=== PATIENT | male | born 1990 ===

== ENCOUNTER 2018-06-26 18:04 | Emergency (ER) | payer MEDICAID, OTHER ==
[2018-06-26 18:18] VITALS: BP 144/87; PULSE 80; RESP 19; TEMP 98.4; O2SAT 99
--- NOTE | 2018-06-26 18:31 | ED PDOC ---
HPI: SOB/CHF/COPD Time Seen by Provider: 06/26/18 18:24 Chief Complaint (Nursing): Shortness Of Breath Chief Complaint (Provider): Shortness of breath History Per: Patient History/Exam Limitations: no limitations Onset/Duration Of Symptoms: Days (months) Additional Complaint(s): Pt. states he has shortness of breath and has asthma. Refuses to give more information. Denies chest pain. States he also has a rash on his right hand. Refuses to answer if it is itchy, painful, or give any more information for it. Past Medical History Reviewed: Historical Data, Nursing Documentation, Vital Signs Vital Signs: Last Vital Signs Temp 98.4 F 06/26/18 18:15 Pulse 80 06/26/18 18:15 Resp 19 06/26/18 18:15 BP 144/87 06/26/18 18:15 Pulse Ox 99 06/26/18 18:15 - Medical History PMH: Asthma - Surgical History Surgical History: No Surg Hx - Family History Family History: States: Unknown Family Hx - Immunization History Hx Tetanus Toxoid Vaccination: No Hx Influenza Vaccination: No Hx Pneumococcal Vaccination: No - Home Medications Home Medications: Ambulatory Orders Medication Instructions Recorded Albuterol HFA [Ventolin HFA 90 1 puff IH Q6H PRN 90 Days #1 05/13/18 mcg/actuation (8 g)] inhaler Albuterol HFA [Ventolin HFA 90 2 puff IH [id number] #1 inhaler 06/23/18 mcg/actuation (8 g)] Albuterol Sulfate [Proair Hfa] 0.09 mg IH Q6H PRN #2 inh 06/26/18 - Allergies Allergies/Adverse Reactions: Allergies Allergy/AdvReac Type Severity Reaction Status Date / Time No Known Allergies Allergy Verified 06/26/18 18:14 Review of Systems Review Of Systems: ROS cannot be obtained secondary to pt's inabilty to answer questions. (pt. refusing to give any full details) Respiratory: Positive for: Shortness of Breath Skin: Positive for: Rash Physical Exam - Reviewed Nursing Documentation Reviewed: Yes Vital Signs Reviewed: Yes - Physical Exam Appears: Positive for: Well, Non-toxic, No Acute Distress Head Exam: Positive for: ATRAUMATIC, NORMAL INSPECTION, NORMOCEPHALIC Skin: Positive for: Rash (R ventral wrist with 1cm diameter echymosis area, nontender; no dc, fluctuance, induration.) Eye Exam: Positive for: EOMI, Normal appearance, PERRL ENT: Positive for: Normal ENT Inspection Neck: Positive for: Normal, Painless ROM Cardiovascular/Chest: Positive for: Regular Rate, Rhythm Respiratory: Positive for: Normal Breath Sounds. Negative for: Accessory Muscle Use, Wheezing Pulses-Radial (L): 2+ Pulses-Radial (R): 2+ Gastrointestinal/Abdominal: Positive for: Normal Exam, Soft. Negative for: Tenderness Back: Positive for: Normal Inspection. Negative for: L CVA Tenderness, R CVA Tenderness Extremity: Positive for: Normal ROM. Negative for: Tenderness, Pedal Edema Neurologic/Psych: Positive for: Alert, phlebotomy manager II-XII, Oriented. Negative for: Motor/Sensory Deficits, Aphasia, Facial Droop - ECG ECG: Positive for: Interpreted By Me, Viewed By Me ECG Rhythm: Positive for: Sinus Rhythm. Negative for: Atrial Flutter Interpretation Of Abn EKG: similar to old O2 Sat by Pulse Oximetry: 99 Pulse Ox Interpretation: Normal - Progress ED Course And Treament: 1832: Stable. Demanding report to be made about a needle that was put in his R wrist and missed the vein. States a rash came after. Refuses to give date, time, type of needle, where incident occurred, or any other information. Pt. refusing to answer most questions and breathing wnl. AAOx3. Pt. recently for the same and dc. Same presentation. 1939: Stable. Continued arguing about different reasons for his rash and why it was caused. Refusing to give full information. Walked out with his papers. Disposition - Clinical Impression Clinical Impression: Asthma, Ecchymosis - Patient ED Disposition Is Patient to be Admitted: No Counseled Patient/Family Regarding: Diagnosis, Need For Followup, Rx Given - Disposition Referrals: [facility] [Outside] - 06/27/18 Disposition: Routine/Home Disposition Time: 18:38 Condition: STABLE Additional Instructions: Return if not better in 3 days. Prescriptions: Albuterol Sulfate [Proair Hfa] 0.09 mg IH Q6H PRN #2 inh PRN Reason: Wheezing Instructions: Asthma in Adults, Skin Rash
[2018-06-26] MEDS ORDERED: Albuterol-Ipratrop 3 mg / 0.5 (3 ml) UD IH STA (18:32)
[2018-06-26] MEDS ORDERED: Albuterol-Ipratrop 3 mg / 0.5 (3 ml) UD ONE (18:50)
--- NOTE | 2018-06-27 09:21 | CARD ---
APPROVED REPORT Date of service: 06/26/2018 EKG Measurement Heart [id number] <Conclusion> Normal sinus rhythm Incomplete right bundle branch block Borderline ECG
== END 2018-06-26 19:30 | disposition home or self-care (01) ==
LOC: H.ER 18:04
DX: J45.909 Unspecified asthma, uncomplicated (principal); R58 Hemorrhage, not elsewhere classified

== ENCOUNTER 2018-07-03 15:04 | Emergency (ER) | payer OTHER ==
[2018-07-03 15:17] VITALS: BP 111/68; PULSE 88; RESP 18; TEMP 98.8; O2SAT 98
--- NOTE | 2018-07-03 15:28 | ED PDOC ---
HPI: SOB/CHF/COPD Time Seen by Provider: 07/03/18 15:25 Chief Complaint (Nursing): Shortness Of Breath Chief Complaint (Provider): Shortness of breath History Per: Patient History/Exam Limitations: no limitations Onset/Duration Of Symptoms: Days (1x day) Current Symptoms Are (Timing): Gone Now Current Respiratory Medications: Albuterol, Steroid Inhaler Severity: Moderate Additional Complaint(s): 27 year old male with a past medical history of asthma presents to the ED for an evaluation of shortness of breath. Patient reports that he has been experiencing shortness of breath for the past few months, and was prescribed a nebulizer and an inhaler, but has not used them. Patient is requesting crackers and juice. P atient also requests that he be admitted overnight as he feels he may from his shortness of breath. PMD: Dr. Nathan. Past Medical History Reviewed: Historical Data, Nursing Documentation, Vital Signs Vital Signs: Last Vital Signs Temp 98.8 F 07/03/18 15:14 Pulse 88 07/03/18 15:14 Resp 18 07/03/18 15:14 BP 111/68 07/03/18 15:14 Pulse Ox 98 07/03/18 15:14 DORY Report Viewed: Yes - Medical History PMH: Asthma - Family History Family History: States: No Known Family Hx - Social History Current smoker - smoking cessation education provided: No Alcohol: None Drugs: Denies - Immunization History Hx Tetanus Toxoid Vaccination: No Hx Influenza Vaccination: No Hx Pneumococcal Vaccination: No - Home Medications Home Medications: Ambulatory Orders Medication Instructions Recorded Albuterol HFA [Ventolin HFA 90 1 puff IH Q6H PRN 90 Days #1 05/13/18 mcg/actuation (8 g)] inhaler Albuterol HFA [Ventolin HFA 90 2 puff IH [id number] #1 inhaler 06/23/18 mcg/actuation (8 g)] Albuterol Sulfate [Proair Hfa] 0.09 mg IH Q6H PRN #2 inh 06/26/18 - Allergies Allergies/Adverse Reactions: Allergies Allergy/AdvReac Type Severity Reaction Status Date / Time No Known Allergies Allergy Verified 06/26/18 18:14 Review of Systems ROS Statement: Except As Marked, All Systems Reviewed And Found Negative Respiratory: Positive for: Shortness of Breath Psych: Positive for: Other (auditory hallucinations) Physical Exam - Reviewed Nursing Documentation Reviewed: Yes Vital Signs Reviewed: Yes - Physical Exam Appears: Positive for: Well, Non-toxic, No Acute Distress Head Exam: Positive for: ATRAUMATIC, NORMOCEPHALIC Skin: Positive for: Normal Color, Warm, Dry Cardiovascular/Chest: Positive for: Regular Rate, Rhythm Respiratory: Positive for: Normal Breath Sounds (patient speaking in full sentences). Negative for: Decreased Breath Sounds, Rales, Rhonchi, Wheezing, Respiratory Distress Neurologic/Psych: Positive for: Alert, Oriented (3x) - ECG O2 Sat by Pulse Oximetry: 98 (RA) Pulse Ox Interpretation: Normal - Progress ED Course And Treament: EKG: NSR 85BPM; NO ECTOPY NO ACUTE CHANGES PATIENT COMFORTABLE IN ED. REQUESTS SANDWICH/DRINK AND ADMISSION TO HOSPITAL FOR FURTHER EVALUATION OF SOB. PATIENT REFUSED CXR AND BLOODWORK. LEFT WITHOUT FURTHER WORK UP Medical Decision Making Medical Decision Makin:25 Initial impression: 27 year old male with shortness of breath Initial plan: * XRay chest 2 views * EKG * alcohol serum * CMP * drug screen urinary * CBC with differential * urinalysis * reevaluation Scribe Attestation: Documented Ana Leiva, acting as a scribe for Deepthi Monreal PA-C. Provider Scribe Attestation: All medical record entries made by the Scribe were at my direction and personally dictated by me. I have reviewed the chart and agree that the record accurately reflects my personal performance of the history, physical exam, medical decision making, and the department course for this patient. I have also personally directed, reviewed, and agree with the discharge instructions and disposition. Disposition - Clinical Impression Clinical Impression: Shortness of breath - Patient ED Disposition Is Patient to be Admitted: No - Disposition Disposition: Left W/O Treatment Disposition Time: 15:50 Condition: FAIR
--- NOTE | 2018-07-03 15:59 | RAD ---
Date of service: 07/03/2018 HISTORY: ROUTINE COMPARISON: No prior. TECHNIQUE: Chest PA and lateral FINDINGS: LUNGS: No active pulmonary disease. PLEURA: No significant pleural effusion identified. No pneumothorax apparent. CARDIOVASCULAR: No aortic atherosclerotic calcification present. Normal cardiac size. No pulmonary vascular congestion. OSSEOUS STRUCTURES: No significant abnormalities. VISUALIZED UPPER ABDOMEN: Normal. OTHER FINDINGS: None. IMPRESSION: No active disease.
--- NOTE | 2018-07-04 10:13 | CARD ---
APPROVED REPORT Date of service: 07/03/2018 EKG Measurement Heart [id number] <Conclusion> Normal sinus rhythm Incomplete RBBB Borderline ECG
== END 2018-07-03 15:50 | disposition left against medical advice (07) ==
LOC: H.ER 15:04
DX: R06.02 Shortness of breath (principal)

== ENCOUNTER 2018-07-10 00:54 | Emergency (ER) | payer MEDICAID, OTHER ==
[2018-07-10 01:14] VITALS: BP 127/60; PULSE 82; TEMP 97.8; O2SAT 98
--- NOTE | 2018-07-10 01:35 | ED PDOC ---
HPI: General Adult Time Seen by Provider: 07/10/18 01:33 Chief Complaint (Nursing): Respiratory Distress Chief Complaint (Provider): SOB History Per: Patient (27 Y/O MALE HERE FOR EVALUATION OF ASTHMA EXACERBATION NOTED PRIOR TO ED ARRIVAL. STATES HE FEELS LIKE HIS VENTOLIN INHALER DID NOT WORK FOR HIM. NO FEVER/COUGHS. REQUESTS TO STAY IN THE ED FOR A FEW HOURS.) Past Medical History Reviewed: Historical Data, Nursing Documentation, Vital Signs Vital Signs: Last Vital Signs Temp 97.8 F 07/10/18 01:09 Pulse 82 07/10/18 01:09 Resp 16 07/10/18 01:09 BP 127/60 07/10/18 01:09 Pulse Ox 98 07/10/18 01:09 - Medical History PMH: Asthma - Family History Family History: States: Unknown Family Hx - Immunization History Hx Tetanus Toxoid Vaccination: No Hx Influenza Vaccination: No Hx Pneumococcal Vaccination: No - Home Medications Home Medications: Ambulatory Orders Medication Instructions Recorded Albuterol HFA [Ventolin HFA 90 1 puff IH Q6H PRN 90 Days #1 05/13/18 mcg/actuation (8 g)] inhaler Albuterol HFA [Ventolin HFA 90 2 puff IH [id number] #1 inhaler 06/23/18 mcg/actuation (8 g)] Albuterol Sulfate [Proair Hfa] 0.09 mg IH Q6H PRN #2 inh 06/26/18 Prednisone [Deltasone] 2 tab PO DAILY #10 tablet 07/10/18 - Allergies Allergies/Adverse Reactions: Allergies Allergy/AdvReac Type Severity Reaction Status Date / Time No Known Allergies Allergy Verified 07/10/18 01:08 Review of Systems ROS Statement: Except As Marked, All Systems Reviewed And Found Negative Physical Exam - Reviewed Nursing Documentation Reviewed: Yes Vital Signs Reviewed: Yes - Physical Exam Appears: Positive for: Well, Non-toxic, No Acute Distress Head Exam: Positive for: ATRAUMATIC, NORMAL INSPECTION, NORMOCEPHALIC Skin: Positive for: Normal Color, Warm, DRY Eye Exam: Positive for: EOMI, Normal appearance, PERRL ENT: Positive for: Normal ENT Inspection Neck: Positive for: Normal, Painless ROM Cardiovascular/Chest: Positive for: Regular Rate, Rhythm Respiratory: Positive for: CNT, Normal Breath Sounds Gastrointestinal/Abdominal: Positive for: Normal Exam, Soft Back: Positive for: Normal Inspection Extremity: Positive for: Normal ROM Neurologic/Psych: Positive for: Alert, Oriented - ECG O2 Sat by Pulse Oximetry: 98 - Progress ED Course And Treament: PATIENT WITH NO APPARENT RESPIRATORY DISTRESS. ADAMANT THAT HE HAS HAD ASTHMA UNCONTROLLED BY VENTOLIN INHALER THIS WEEK. ADVISED IF SYMPTOMS RETURN TO START PREDNISONE 40 MG DAILY X 5 DAYS BUT THAT AT CURRENT TIME, APPEARS TO HAVE CLEAR LUNG SOUNDS. Disposition - Clinical Impression Clinical Impression: Asthma - Patient ED Disposition Is Patient to be Admitted: No - Disposition Referrals: [facility] [Outside] Disposition: Routine/Home Disposition Time: 01:35 Condition: FAIR Prescriptions: Prednisone [Deltasone] 2 tab PO DAILY #10 tablet Instructions: Asthma in Adults
[2018-07-11 07:44] VITALS: RESP 18
== END 2018-07-10 02:05 | disposition home or self-care (01) ==
LOC: H.ER 00:54
DX: J45.909 Unspecified asthma, uncomplicated (principal)

== ENCOUNTER 2018-07-10 19:02 | Emergency (ER) | payer OTHER ==
[2018-07-10 19:46] VITALS: BP 121/68; PULSE 84; RESP 16; TEMP 98.7; O2SAT 97
--- NOTE | 2018-07-10 20:17 | ED PDOC ---
History of Present Illness History of Present Illness: 27 year old male with no significant past medical history presents to the ED with asthma for x3 days. Patient states that initially symptoms were worse when he was at home. Now, he states they are worse when he is home and outside. Currently in the ER, patient reports he is having an asthma attack. He has a cough with no phlegm and no fever. Patient is requesting to be admitted to the hospital at this time, in addition to a sandwich and juice. Patient was seen here yesterday for the same symptoms. He denies homelessness and history of smoking. Patient has been using his oven for heat sometimes because he has no control over the heat where he lives. PMD: none provided HPI: Influenza Time Seen by Provider: 07/10/18 20:03 Chief Complaint: Cough, Cold, Congestion Chief Complaint (Provider): Cough, Cold, Congestion History Per: Patient Exam Limitations: no limitations Onset/Duration Of Symptoms: Days (x3) Symptoms include: cough, difficulty breathing. denies: fever Past Medical History Reviewed: Historical Data, Nursing Documentation, Vital Signs Vital Signs: Last Vital Signs Temp 98.7 F 07/10/18 19:43 Pulse 84 07/10/18 19:43 Resp 16 07/10/18 19:43 BP 121/68 07/10/18 19:43 Pulse Ox 97 07/10/18 19:43 - Medical History PMH: Asthma - Surgical History Surgical History: No Surg Hx - Family History Family History: States: Unknown Family Hx - Social History Current smoker - smoking cessation education provided: No Ex-Smoker (has not smoked in the last 12 months): No - Immunization History Hx Tetanus Toxoid Vaccination: No Hx Influenza Vaccination: No Hx Pneumococcal Vaccination: No - Home Medications Home Medications: Ambulatory Orders Medication Instructions Recorded RX: Albuterol HFA [Ventolin HFA 90 1 puff IH Q6H PRN 90 Days #1 05/13/18 mcg/actuation (8 g)] inhaler Albuterol HFA [Ventolin HFA 90 2 puff IH [id number] #1 inhaler 06/23/18 mcg/actuation (8 g)] Albuterol Sulfate [Proair Hfa] 0.09 mg IH Q6H PRN #2 inh 06/26/18 RX: Albuterol HFA [Ventolin HFA 90 2 puff IH Q4H PRN #1 inh 07/10/18 mcg/actuation (8 g)] RX: Prednisone [Deltasone] 2 tab PO DAILY #10 tablet 07/10/18 - Allergies Allergies/Adverse Reactions: Allergies Allergy/AdvReac Type Severity Reaction Status Date / Time No Known Allergies Allergy Verified 07/10/18 01:08 Review of Systems ROS Statement: Except As Marked, All Systems Reviewed And Found Negative Constitutional: Negative for: Fever Respiratory: Positive for: Cough (dry), Shortness of Breath Physical Exam - Reviewed Nursing Documentation Reviewed: Yes Vital Signs Reviewed: Yes - Physical Exam Appears: Positive for: Well, No Acute Distress Head Exam: Positive for: ATRAUMATIC, NORMOCEPHALIC Skin: Positive for: Warm, Dry Eye Exam: Positive for: EOMI, PERRL ENT: Negative for: Pharyngeal Erythema, Tonsillar Exudate Neck: Positive for: Painless ROM, Supple Cardiovascular/Chest: Positive for: Regular Rate, Rhythm. Negative for: Murmur Respiratory: Positive for: Normal Breath Sounds. Negative for: Accessory Muscle Use, Rales, Rhonchi, Wheezing, Respiratory Distress Gastrointestinal/Abdominal: Positive for: Soft. Negative for: Tenderness Back: Positive for: Normal Inspection. Negative for: Muscle Spasm Extremity: Positive for: Normal ROM. Negative for: Deformity Lymphatic: Negative for: Adenopathy Neurologic/Psych: Positive for: Alert. Negative for: Motor/Sensory Deficits Medical Decision Making Medical Decision Making: Time: 2004 Impression: Malingering Time: 2015 ----Despite reporting he is feeling asthma exacerbation, patient appears to be in no respiratory distress and without any signs of asthma. He is also requesting socks. Patient is stable for discharge home, to follow up at clinic Scribe Attestation: Documented by Tasia Chopra, acting as a scribe for Anna Richard MD. Provider Scribe Attestation: All medical record entries made by the Scribe were at my direction and personally dictated by me. I have reviewed the chart and agree that the record accurately reflects my personal performance of the history, physical exam, medical decision making, and the department course for this patient. I have also personally directed, reviewed, and agree with the discharge instructions and disposition. - ECG O2 Sat by Pulse Oximetry: 97 (RA) Pulse Ox Interpretation: Normal Disposition - Clinical Impression Clinical Impression: Asthma Counseled Patient/Family Regarding: Studies Performed, Diagnosis, Need For Followup, Rx Given - Disposition Referrals: [facility] [Outside] Disposition: Routine/Home Disposition Time: 20:16 Condition: STABLE Prescriptions: RX: Albuterol HFA [Ventolin HFA 90 mcg/actuation (8 g)] 2 puff IH Q4H PRN #1 inh PRN Reason: ASTHMA Instructions: Asthma, Adult (DC)
== END 2018-07-10 20:43 | disposition home or self-care (01) ==
LOC: H.ER 19:02
DX: J45.909 Unspecified asthma, uncomplicated (principal); Z87.891 Personal history of nicotine dependence; Z79.899 Other long term (current) drug therapy

== ENCOUNTER 2018-07-14 01:29 | Emergency (ER) | payer MEDICAID, OTHER ==
[2018-07-14 02:15] VITALS: BP 108/69; PULSE 75; RESP 16; TEMP 98.7; O2SAT 97
--- NOTE | 2018-07-14 03:25 | ED PDOC ---
HPI: General Adult Time Seen by Provider: 07/14/18 02:52 Chief Complaint (Nursing): ENT Problem Chief Complaint (Provider): dry throat History Per: Patient History/Exam Limitations: no limitations Onset/Duration Of Symptoms: Days Additional Complaint(s): 27 y/o male presents for evaluation of dry throat for days. Patient states almost every night he wakes up with dry throat and short of breath. Patient states he was evaluated for same at [facility] but all they did was give him Oxygen. Patient denies fever, cough, congestion, chest pain, palpitations, leg pain/swelling. Patient reports he "needs something in his stomach". Past Medical History Reviewed: Historical Data, Nursing Documentation, Vital Signs Vital Signs: Last Vital Signs Temp 98.7 F 07/14/18 02:14 Pulse 75 07/14/18 02:14 Resp 16 07/14/18 02:14 BP 108/69 07/14/18 02:14 Pulse Ox 97 07/14/18 02:14 - Medical History PMH: Asthma - Family History Family History: States: Unknown Family Hx - Immunization History Hx Tetanus Toxoid Vaccination: No Hx Influenza Vaccination: No Hx Pneumococcal Vaccination: No - Home Medications Home Medications: Ambulatory Orders Medication Instructions Recorded RX: Albuterol HFA [Ventolin HFA 90 1 puff IH Q6H PRN 90 Days #1 05/13/18 mcg/actuation (8 g)] inhaler Albuterol HFA [Ventolin HFA 90 2 puff IH [id number] #1 inhaler 06/23/18 mcg/actuation (8 g)] Albuterol Sulfate [Proair Hfa] 0.09 mg IH Q6H PRN #2 inh 06/26/18 RX: Albuterol HFA [Ventolin HFA 90 2 puff IH Q4H PRN #1 inh 07/10/18 mcg/actuation (8 g)] RX: Prednisone [Deltasone] 2 tab PO DAILY #10 tablet 07/10/18 - Allergies Allergies/Adverse Reactions: Allergies Allergy/AdvReac Type Severity Reaction Status Date / Time No Known Allergies Allergy Verified 07/10/18 01:08 Review of Systems ROS Statement: Except As Marked, All Systems Reviewed And Found Negative ENT: Positive for: Other (dry throat) Physical Exam - Reviewed Nursing Documentation Reviewed: Yes Vital Signs Reviewed: Yes - Physical Exam Appears: Positive for: Well, Non-toxic, No Acute Distress Head Exam: Positive for: ATRAUMATIC, NORMAL INSPECTION, NORMOCEPHALIC Skin: Positive for: Normal Color Eye Exam: Positive for: Normal appearance ENT: Positive for: Normal ENT Inspection Cardiovascular/Chest: Positive for: Regular Rate, Rhythm Respiratory: Positive for: Normal Breath Sounds Gastrointestinal/Abdominal: Positive for: Normal Exam Back: Positive for: Normal Inspection Extremity: Positive for: Normal ROM Neurologic/Psych: Positive for: Alert, Oriented (x3) - ECG O2 Sat by Pulse Oximetry: 97 - Progress ED Course And Treament: Patient appears to be in no respiratory distress. Lungs clear. Vitals stable. Multiple recent ED visits with multiple normal CXR's Patient given water and sandwich as requested Patient requires no further intervention in the ED and is stable for discharge at this time Return precautions given Disposition - Clinical Impression Clinical Impression: Throat dryness - Patient ED Disposition Is Patient to be Admitted: No Counseled Patient/Family Regarding: Diagnosis, Need For Followup - Disposition Disposition: Routine/Home Disposition Time: 03:26 Condition: IMPROVED
== END 2018-07-14 04:18 | disposition home or self-care (01) ==
LOC: H.ER 01:29
DX: J39.2 Other diseases of pharynx (principal); J45.909 Unspecified asthma, uncomplicated

== ENCOUNTER 2018-07-14 18:11 | Emergency (ER) | payer OTHER ==
--- NOTE | 2018-07-14 19:39 | ED PDOC ---
HPI: SOB/CHF/COPD Time Seen by Provider: 07/14/18 19:00 Chief Complaint (Nursing): Shortness Of Breath Chief Complaint (Provider): SOB History Per: Patient History/Exam Limitations: no limitations Additional Complaint(s): Pt reports SOB X 1 day. Denies cough, fever, palpitations. Past Medical History Reviewed: Nursing Documentation, Vital Signs Vital Signs: Last Vital Signs Temp 99.1 F 07/14/18 18:28 Pulse 90 07/14/18 18:28 Resp 18 07/14/18 18:28 BP 123/66 07/14/18 18:28 Pulse Ox 99 07/14/18 18:28 - Medical History PMH: Denies: Asthma - Family History Family History: States: Unknown Family Hx - Social History Current smoker - smoking cessation education provided: No - Immunization History Hx Tetanus Toxoid Vaccination: No Hx Influenza Vaccination: No Hx Pneumococcal Vaccination: No - Home Medications Home Medications: Ambulatory Orders Medication Instructions Recorded Albuterol HFA [Ventolin HFA 90 1 puff IH Q6H PRN 90 Days #1 05/13/18 mcg/actuation (8 g)] inhaler Albuterol HFA [Ventolin HFA 90 2 puff IH [id number] #1 inhaler 06/23/18 mcg/actuation (8 g)] Albuterol Sulfate [Proair Hfa] 0.09 mg IH Q6H PRN #2 inh 06/26/18 Albuterol HFA [Ventolin HFA 90 2 puff IH Q4H PRN #1 inh 07/10/18 mcg/actuation (8 g)] Prednisone [Deltasone] 2 tab PO DAILY #10 tablet 07/10/18 - Allergies Allergies/Adverse Reactions: Allergies Allergy/AdvReac Type Severity Reaction Status Date / Time No Known Allergies Allergy Verified 07/10/18 01:08 Review of Systems Constitutional: Negative for: Fever, Chills Cardiovascular: Negative for: Chest Pain, Palpitations Respiratory: Positive for: Shortness of Breath. Negative for: Cough Gastrointestinal: Negative for: Abdominal Pain Neurological: Negative for: Headache Physical Exam - Reviewed Nursing Documentation Reviewed: Yes Vital Signs Reviewed: Yes - Physical Exam Appears: Positive for: Well, No Acute Distress (Speaking full sentences) Skin: Positive for: Normal Color, Warm, Dry Eye Exam: Positive for: Normal appearance, EOMI, PERRL Cardiovascular/Chest: Positive for: Regular Rate, Rhythm Respiratory: Positive for: Normal Breath Sounds. Negative for: Rales, Rhonchi, Wheezing Extremity: Positive for: Normal ROM. Negative for: Tenderness, Calf Tenderness, Swelling Neurologic/Psych: Positive for: Alert, Oriented - Laboratory Results Result Diagrams: 07/14/18 20:20 07/14/18 20:20 - ECG Interpretation Of ECG: NSR @ 91, no ST-T changes. O2 Sat by Pulse Oximetry: 99 Pulse Ox Interpretation: Normal - Radiology X-Ray: Interpreted by Me X-Ray Interpretation: No Acute Disease Medical Decision Making Medical Decision Makin yo male with SOB. - labs - CXR Accession No. : [id number] Patient Name / ID : ZAIN Navarro / [id number] Exam Date : 07/14/2018 19:29:31 ( Approved ) Study Comment : Sex / Age : M / 27Y Creator : Bhupinder Stein MD Dictator : Bhupinder Stein MD Predatory Animal Hunter : Process Coordinator : Bhupinder Stein MD Approver2 : Report Date : 07/15/2018 09:58:05 My Comment : Date of service: 07/14/2018 HISTORY: SOB COMPARISON: Chest radiographs 07/03/2017. TECHNIQUE: Chest PA and lateral FINDINGS: LUNGS: No active pulmonary disease. PLEURA: No significant pleural effusion identified. No pneumothorax apparent. CARDIOVASCULAR: No aortic atherosclerotic calcification present. Normal cardiac size. No pulmonary vascular congestion. OSSEOUS STRUCTURES: No significant abnormalities. VISUALIZED UPPER ABDOMEN: Normal. OTHER FINDINGS: None. IMPRESSION: No interval acute cardiopulmonary disease appreciated. Disposition - Clinical Impression Clinical Impression: Dyspnea - Disposition Referrals: [facility] [Outside] Disposition: Routine/Home Disposition Time: 22:00 Condition: STABLE Instructions: Shortness of Breath (Dyspnea) Forms: Mobile Pulse (Martiniquais)
[2018-07-14 20:29] LABS: BASO # 0.1 K/uL (0.0-0.2); BASO % 0.6 % (0.0-2.0); EOS % 0.3 % (0.0-4.0); HEMOGLOBIN 14.6 g/dL (12.0-18.0); LYMPH # 2.8 K/uL (1.0-4.3); LYMPH % 29.6 % (20.0-40.0); MEAN CELL VOLUME 86.5 fl (80.0-94.0); MEAN CORPUSCULAR HEMOGLOBIN 28.3 pg (27.0-31.0); MEAN CORPUSCULAR HGB CONC 32.7 g/dL (33.0-37.0); MEAN PLATELET VOLUME 9.4 fl (7.2-11.7); MONO # 0.7 K/uL (0.0-0.8); MONO % 7.2 % (0.0-10.0); NEUT % 62.3 % (50.0-75.0); RBC 5.17 Mil/uL (4.40-5.90); WHITE BLOOD COUNT 9.6 K/uL (4.8-10.8)
[2018-07-14 20:33] LABS: PROTHROMBIN TIME 11.8 Seconds (9.8-13.1)
[2018-07-14 20:36] LABS: PARTIAL THROMBOPLASTIN TIME 32.7 Seconds (25.6-37.1)
[2018-07-14 20:43] LABS: ALB/GLOB RATIO 1.6 (1.0-2.1); ALBUMIN 4.7 g/dL (3.5-5.0); ALT/SGPT 26 U/L (21-72); AST/SGOT 54 U/L (17-59); BLOOD UREA NITROGEN 21 mg/dl (9-20); CALCIUM 9.8 mg/dL (8.4-10.2); GFR NON-AFRICAN AMERICAN > 60
[2018-07-14 21:02] LABS: D DIMER < 200 ng/mlDDU (0-230)
[2018-07-14 22:12] VITALS: BP 133/74; PULSE 88; RESP 16; TEMP 98
--- NOTE | 2018-07-15 10:01 | RAD ---
Date of service: 07/14/2018 HISTORY: SOB COMPARISON: Chest radiographs 07/03/2017. TECHNIQUE: Chest PA and lateral FINDINGS: LUNGS: No active pulmonary disease. PLEURA: No significant pleural effusion identified. No pneumothorax apparent. CARDIOVASCULAR: No aortic atherosclerotic calcification present. Normal cardiac size. No pulmonary vascular congestion. OSSEOUS STRUCTURES: No significant abnormalities. VISUALIZED UPPER ABDOMEN: Normal. OTHER FINDINGS: None. IMPRESSION: No interval acute cardiopulmonary disease appreciated.
[2018-07-18 13:48] VITALS: O2SAT 99
== END 2018-07-14 22:12 | disposition home or self-care (01) ==
LOC: H.ER 18:11
DX: R06.00 Dyspnea, unspecified (principal); J44.9 Chronic obstructive pulmonary disease, unspecified

== ENCOUNTER 2018-07-19 19:46 | Emergency (ER) | payer OTHER ==
[2018-07-19 19:51] VITALS: O2SAT 98
[2018-07-19] MEDS ORDERED: Albuterol-Ipratrop 3 mg / 0.5 (3 ml) UD IH STA (20:13)
--- NOTE | 2018-07-19 20:14 | ED PDOC ---
HPI: SOB/CHF/COPD Time Seen by Provider: 07/19/18 20:06 Chief Complaint (Nursing): Shortness Of Breath Chief Complaint (Provider): shortness of breath History Per: Patient History/Exam Limitations: no limitations Onset/Duration Of Symptoms: Days Current Symptoms Are (Timing): Still Present Additional Complaint(s): 27 y/o male brought in by EMS for evaluation of shortness of breath. Patient states "I can't take a deep breath". Patient with multiple to this ED and [facility] ED for same. Denies fever, headache, congestion, cough, chest pain, palpitations, leg pain/swelling. Past Medical History Reviewed: Historical Data, Nursing Documentation, Vital Signs Vital Signs: Last Vital Signs Temp 99.4 F 07/19/18 20:13 Pulse 96 H 07/19/18 19:49 Resp 16 07/19/18 19:49 BP 161/82 H 07/19/18 19:49 Pulse Ox 98 07/19/18 19:49 - Medical History PMH: Denies: Asthma - Surgical History Surgical History: No Surg Hx - Family History Family History: States: Unknown Family Hx - Immunization History Hx Tetanus Toxoid Vaccination: No Hx Influenza Vaccination: No Hx Pneumococcal Vaccination: No - Home Medications Home Medications: Ambulatory Orders Medication Instructions Recorded Albuterol HFA [Ventolin HFA 90 1 puff IH Q6H PRN 90 Days #1 05/13/18 mcg/actuation (8 g)] inhaler Albuterol HFA [Ventolin HFA 90 2 puff IH [id number] #1 inhaler 06/23/18 mcg/actuation (8 g)] Albuterol Sulfate [Proair Hfa] 0.09 mg IH Q6H PRN #2 inh 06/26/18 Albuterol HFA [Ventolin HFA 90 2 puff IH Q4H PRN #1 inh 07/10/18 mcg/actuation (8 g)] Prednisone [Deltasone] 2 tab PO DAILY #10 tablet 07/10/18 Albuterol HFA [Ventolin HFA 90 1 puff IH Q4 PRN #1 inh 07/19/18 mcg/actuation (8 g)] - Allergies Allergies/Adverse Reactions: Allergies Allergy/AdvReac Type Severity Reaction Status Date / Time No Known Allergies Allergy Verified 02/03/19 01:08 Review of Systems ROS Statement: Except As Marked, All Systems Reviewed And Found Negative Respiratory: Positive for: Shortness of Breath Physical Exam - Reviewed Nursing Documentation Reviewed: Yes Vital Signs Reviewed: Yes - Physical Exam Appears: Positive for: Well, Non-toxic, No Acute Distress Head Exam: Positive for: ATRAUMATIC, NORMAL INSPECTION, NORMOCEPHALIC Skin: Positive for: Normal Color Eye Exam: Positive for: Normal appearance ENT: Positive for: Normal ENT Inspection Cardiovascular/Chest: Positive for: Regular Rate, Rhythm Respiratory: Positive for: Normal Breath Sounds Gastrointestinal/Abdominal: Positive for: Normal Exam Back: Positive for: Normal Inspection Extremity: Positive for: Normal ROM Neurologic/Psych: Positive for: Alert, Oriented (x3) - ECG ECG: Positive for: Viewed By Me (reviewed by ED attending) ECG Rhythm: Positive for: Sinus Rhythm O2 Sat by Pulse Oximetry: 98 - Progress ED Course And Treament: Patient had full work up on 07/14 for same with normal results Duoneb given with improvement of symptoms Patient asking for something to eat Patient educated on findings, stressed importance with follow up with a primary care doctor as with many recent ED visits. Rx albuterol provided Patient requires no further intervention in the ED and is stable for discharge at this time Disposition - Clinical Impression Clinical Impression: Dyspnea - Patient ED Disposition Is Patient to be Admitted: No Counseled Patient/Family Regarding: Studies Performed, Diagnosis, Need For Followup, Rx Given - Disposition Referrals: [facility] [Outside] [facility] [Outside] Disposition: Routine/Home Disposition Time: 22:02 Condition: IMPROVED Prescriptions: Albuterol HFA [Ventolin HFA 90 mcg/actuation (8 g)] 1 puff IH Q4 PRN #1 inh PRN Reason: Wheezing Instructions: Shortness of Breath (Dyspnea) Forms: [employer] (Croatian)
[2018-07-19] MEDS ORDERED: Albuterol-Ipratrop 3 mg / 0.5 (3 ml) UD ONE (21:00)
[2018-07-19 22:36] VITALS: RESP 17
[2018-07-19 22:41] VITALS: BP 114/82; PULSE 63; TEMP 98.2
--- NOTE | 2018-07-20 10:02 | CARD ---
APPROVED REPORT Date of service: 07/19/2018 EKG Measurement Heart [id number] [place] [id number] <Conclusion> Normal sinus rhythm Incomplete right bundle branch block Borderline ECG
== END 2018-07-19 21:52 | disposition home or self-care (01) ==
LOC: H.ER 19:46
DX: R06.00 Dyspnea, unspecified (principal)

== ENCOUNTER 2018-07-20 22:10 | Emergency (ER) | payer OTHER ==
[2018-07-20 22:23] VITALS: BP 129/85; PULSE 77; TEMP 98.3; O2SAT 99
[2018-07-20] MEDS ORDERED: Albuterol-Ipratrop 3 mg / 0.5 (3 ml) UD INH STA (22:27)
--- NOTE | 2018-07-20 22:32 | ED PDOC ---
HPI: SOB/CHF/COPD Time Seen by Provider: 07/20/18 22:26 Chief Complaint (Nursing): Shortness Of Breath Chief Complaint (Provider): Shortness of Breath History Per: Patient History/Exam Limitations: no limitations Onset/Duration Of Symptoms: Days (>1 year) Current Symptoms Are (Timing): Still Present Recently: Seen In ED (numerous times, including yesterday) Additional Complaint(s): 27 y/o male presents for evaluation of shortness of breath. Patient states "I feel like I can't take a deep breath". Patient with multiple visits to this ED and other EDs for the same complaint; patient was most recently elevated in this ED last night for the same complaint. Denies fever, headache, congestion, cough, chest pain, palpitations, leg pain/swelling, prolonged immobility. Patient is requesting a private room upon arrival to ED, food to eat, and admission. Patient further notes he did not fill his RX from his ED visit last night. PMD: none provided. Past Medical History Reviewed: Historical Data, Nursing Documentation, Vital Signs Vital Signs: Last Vital Signs Temp 98.3 F 07/20/18 22:20 Pulse 77 07/20/18 22:20 Resp 16 07/20/18 22:20 BP 129/85 07/20/18 22:20 Pulse Ox 99 07/20/18 22:20 - Medical History PMH: No Chronic Diseases Denies: Asthma - Surgical History Surgical History: No Surg Hx - Family History Family History: States: Unknown Family Hx - Home Medications Home Medications: Ambulatory Orders Medication Instructions Recorded RX: Albuterol HFA [Ventolin HFA 90 1 puff IH Q6H PRN 90 Days #1 05/13/18 mcg/actuation (8 g)] inhaler Albuterol HFA [Ventolin HFA 90 2 puff IH [id number] #1 inhaler 06/23/18 mcg/actuation (8 g)] Albuterol Sulfate [Proair Hfa] 0.09 mg IH Q6H PRN #2 inh 06/26/18 RX: Albuterol HFA [Ventolin HFA 90 2 puff IH Q4H PRN #1 inh 07/10/18 mcg/actuation (8 g)] RX: Prednisone [Deltasone] 2 tab PO DAILY #10 tablet 07/10/18 RX: Albuterol HFA [Ventolin HFA 90 1 puff IH Q4 PRN #1 inh 07/19/18 mcg/actuation (8 g)] Albuterol Sulfate [Ventolin Hfa] 1 puff IH Q4 PRN #1 unit 07/20/18 - Allergies Allergies/Adverse Reactions: Allergies Allergy/AdvReac Type Severity Reaction Status Date / Time No Known Allergies Allergy Verified 07/10/18 01:08 Review of Systems ROS Statement: Except As Marked, All Systems Reviewed And Found Negative Respiratory: Positive for: Shortness of Breath Physical Exam - Reviewed Nursing Documentation Reviewed: Yes Vital Signs Reviewed: Yes - Physical Exam Comments: Appears: Positive for: Well, Non-toxic, No Acute Distress, Resting comfortably. Head Exam: Positive for: ATRAUMATIC, NORMOCEPHALIC Skin: Positive for: Normal Color Eye Exam: Positive for: Normal appearance Cardiovascular/Chest: Positive for: Regular Rate, Rhythm Respiratory: Positive for: Normal Breath Sounds, Respirations even and nonlabored, Speaking in full sentences. Negative for: retractions, rales, rhonchi, wheezing. Extremity: Positive for: Normal ROM Neurologic/Psych: Positive for: Alert, Oriented (x3), Gait: steady, Speech: clear. - ECG O2 Sat by Pulse Oximetry: 99 (RA) Pulse Ox Interpretation: Normal Medical Decision Making Medical Decision Makin Initial Impression: Dyspnea Plan: -Duoneb INH x1 -EKG -Patient refused to do peak flow correctly despite numerous attempts. -Re-evaluation -Charts reviewed from prior visits, patient had full work up on 07/14 for same complaint with unremarkable results. CXR from 07/14/18 reviewed and unremarkable. EKG: NSR @ 80bpm, (-) ST elevation, QTc 399 2300 Duoneb given with improvement of symptoms. Stressed importance with follow up with a primary care doctor given patient has been visiting EDs frequently. Patient requires no further intervention in the ED and is stable for discharge at this time. Vitals stable. Based on history, exam and diagnostic results, plan will be for outpatient follow up with clinic. Patient instructed to follow-up with pmd / referral provided / the clinic in 1- 2 days without fail. Advised to take medication as prescribed. Return to the emergency room at any time for any new or worsening symptoms. Patient states he fully agrees with and understands discharge instructions. States that he agrees with the plan and disposition. Verbalized and repeated discharge instructions and plan. I have given the patient opportunity to ask any additional questions. Disposition - Clinical Impression Clinical Impression: Dyspnea - Patient ED Disposition Is Patient to be Admitted: No Counseled Patient/Family Regarding: Studies Performed, Diagnosis, Need For Followup, Rx Given - Disposition Referrals: [facility] [Outside] Disposition: Routine/Home Disposition Time: 23:00 Condition: STABLE Additional Instructions: The emergency medical care you received today was directed at your acute symptoms. If you were prescribed any medication, please fill it and take as directed. It may take several days for your symptoms to resolve. Return to the Emergency Department if your symptoms worsen, do not improve, or if you have any other problems. Please contact your doctor in 2 days for re-evaluation and follow up / or call one of the physicians/clinics you have been referred to that are listed on the Patient Visit Information form that is included in your discharge packet. Bring any paperwork you were given at discharge with you along with any medications you are taking to your follow up visit. Our treatment cannot replace ongoing medical care by a primary care provider (PCP) outside of the emergency department. Prescriptions: Albuterol Sulfate [Ventolin Hfa] 1 puff IH Q4 PRN #1 unit PRN Reason: Shortness Of Breath Instructions: Shortness of Breath (Dyspnea) Forms: [employer] (Slovak) Print Language: GREEK - POA Present On Arrival: None
[2018-07-20] MEDS ORDERED: Albuterol-Ipratrop 3 mg / 0.5 (3 ml) UD ONE (22:36)
[2018-07-20 22:49] VITALS: RESP 18
--- NOTE | 2018-07-21 10:16 | CARD ---
APPROVED REPORT Date of service: 07/20/2018 EKG Measurement Heart [id number] MD [id number] <Conclusion> Normal sinus rhythm Incomplete right bundle branch block Borderline ECG
== END 2018-07-20 23:05 | disposition home or self-care (01) ==
LOC: H.ER 22:10
DX: R06.00 Dyspnea, unspecified (principal)

== ENCOUNTER 2018-07-23 22:39 | Emergency (ER) | payer OTHER ==
[2018-07-23 23:22] VITALS: BP 126/78; PULSE 81; RESP 16; TEMP 98; O2SAT 98
[2018-07-23] MEDS ORDERED: Albuterol 0.083% Inhal Sol (2.5 mg/3 mL) UD INH STA (23:32)
--- NOTE | 2018-07-23 23:39 | ED PDOC ---
HPI: Influenza Time Seen by Provider: 07/23/18 23:25 Chief Complaint: Cough, Cold, Congestion History Per: Patient Additional complaint(s):: Pt. states he developed sore throat and an "asthma attack" 1 hr [employer]. pt. states he still has yet to fill his Rx for albuterol as his "insurance does not kick in until the ." SOB is consistent with previous episodes of "asthma attack." Denies chest pain, hemoptysis, fever, rash. Past Medical History Reviewed: Historical Data, Nursing Documentation, Vital Signs Vital Signs: Last Vital Signs Temp 98.0 F 07/23/18 23:19 Pulse 81 07/23/18 23:19 Resp 16 07/23/18 23:19 BP 126/78 07/23/18 23:19 Pulse Ox 98 07/23/18 23:19 - Medical History PMH: Denies: Asthma - Surgical History Surgical History: No Surg Hx - Family History Family History: States: No Known Family Hx - Social History Current smoker - smoking cessation education provided: No Ex-Smoker (has not smoked in the last 12 months): No Drugs: Denies - Immunization History Hx Tetanus Toxoid Vaccination: No Hx Influenza Vaccination: No Hx Pneumococcal Vaccination: No - Home Medications Home Medications: Ambulatory Orders Medication Instructions Recorded Albuterol HFA [Ventolin HFA 90 1 puff IH Q6H PRN 90 Days #1 05/13/18 mcg/actuation (8 g)] inhaler Albuterol HFA [Ventolin HFA 90 2 puff IH [id number] #1 inhaler 06/23/18 mcg/actuation (8 g)] Albuterol Sulfate [Proair Hfa] 0.09 mg IH Q6H PRN #2 inh 06/26/18 Albuterol HFA [Ventolin HFA 90 2 puff IH Q4H PRN #1 inh 07/10/18 mcg/actuation (8 g)] Prednisone [Deltasone] 2 tab PO DAILY #10 tablet 07/10/18 Albuterol HFA [Ventolin HFA 90 1 puff IH Q4 PRN #1 inh 07/19/18 mcg/actuation (8 g)] Albuterol Sulfate [Ventolin Hfa] 1 puff IH Q4 PRN #1 unit 07/20/18 - Allergies Allergies/Adverse Reactions: Allergies Allergy/AdvReac Type Severity Reaction Status Date / Time No Known Allergies Allergy Verified 07/23/18 23:19 Review of Systems ROS Statement: Except As Marked, All Systems Reviewed And Found Negative ENT: Positive for: Throat Pain Respiratory: Positive for: Wheezing Physical Exam - Physical Exam Appears: Positive for: Well, Non-toxic, No Acute Distress (speaking in full sentences) Skin: Positive for: Normal Color, Warm. Negative for: Rash Eye Exam: Positive for: Normal appearance. Negative for: Other ENT: Positive for: Normal ENT Inspection, TM Is/Are (non-erythematous, non- bulging b/l). Negative for: Pharyngeal Erythema, Tonsillar Exudate Neck: Positive for: Normal, Painless ROM, Supple Cardiovascular/Chest: Positive for: Regular Rate, Rhythm Respiratory: Positive for: Normal Breath Sounds. Negative for: Wheezing, Respiratory Distress Lymphatic: Positive for: Other (No cervical LAD) Neurologic/Psych: Positive for: Alert, Oriented (x3) - ECG O2 Sat by Pulse Oximetry: 98 - Progress ED Course And Treament: Albuterol neb x1, rapid strep ordered. Re-evaluation Time: 00:05 (Rapid strep: negative. Informed of results. Reports "asthma attack" has resovled. Advised to get albuterol pump Rx filled. States he is "fine" and does not want to. Advised to return to ED immediately if symptoms worsen. ) Condition: Re-examined, Improved Disposition - Clinical Impression Clinical Impression: Sore throat, Asthma - Patient ED Disposition Is Patient to be Admitted: No (Signed out to Demetrius BURLESON pending re-evaluation and rapid strep results) - Disposition Disposition: Routine/Home Disposition Time: 00:06 Condition: IMPROVED Instructions: Sore Throat, Adult (DC), Inhaled Corticosteroid Medicines Forms: [employer] (Comoran)
[2018-07-23] MEDS ORDERED: Albuterol 0.083% Inhal Sol (2.5 mg/3 mL) UD ONE (23:40)
== END 2018-07-24 00:19 | disposition home or self-care (01) ==
LOC: H.ER 22:39
DX: J45.909 Unspecified asthma, uncomplicated (principal); J02.9 Acute pharyngitis, unspecified

== ENCOUNTER 2018-07-25 17:38 | Emergency (ER) | payer OTHER ==
[2018-07-25 17:46] VITALS: BP 122/72; PULSE 73; TEMP 98.6; O2SAT 98
[2018-07-25 18:27] VITALS: RESP 19
[2018-07-25 18:28] LABS: BASO # 0.1 K/uL (0.0-0.2); BASO % 1.1 % (0.0-2.0); EOS % 0.1 % (0.0-4.0); HEMOGLOBIN 14.3 g/dL (12.0-18.0); LYMPH # 1.9 K/uL (1.0-4.3); LYMPH % 32.2 % (20.0-40.0); MEAN CELL VOLUME 86.9 fl (80.0-94.0); MEAN CORPUSCULAR HEMOGLOBIN 28.4 pg (27.0-31.0); MEAN CORPUSCULAR HGB CONC 32.7 g/dL (33.0-37.0); MEAN PLATELET VOLUME 8.6 fl (7.2-11.7); MONO # 0.3 K/uL (0.0-0.8); MONO % 4.5 % (0.0-10.0); NEUT # 3.6 K/uL (1.8-7.0); NEUT % 62.1 % (50.0-75.0); NRBC % 0.1 % (0.0-0.0); RBC 5.03 Mil/uL (4.40-5.90); RED CELL DISTRIBUTION WIDTH 14.4 % (11.5-14.5); WHITE BLOOD COUNT 5.8 K/uL (4.8-10.8)
--- NOTE | 2018-07-25 18:42 | ED PDOC ---
HPI: SOB/CHF/COPD Time Seen by Provider: 07/25/18 17:48 Chief Complaint (Nursing): Shortness Of Breath Chief Complaint (Provider): SOB/Asthma Exacerbation History Per: Patient History/Exam Limitations: no limitations Onset/Duration Of Symptoms: Hrs (several ) Exacerbating Factor(s): Coughing (Pt presents to the ED complaining of shortness of breath; this is his second visit for the same symptoms in two consecutive days. Pt denies any medical history whatsover but acknowledges "knowing what is wrong" but will not share details. Pt denies recent trauma and illness) Current Respiratory Medications: Albuterol Past Medical History Reviewed: Historical Data Vital Signs: Last Vital Signs Temp 98.6 F 07/25/18 17:44 Pulse 73 07/25/18 17:44 Resp 19 07/25/18 18:26 BP 122/72 07/25/18 17:44 Pulse Ox 98 07/25/18 18:26 - Medical History PMH: Asthma, Sexually Transmitted Disease - Family History Family History: States: Unknown Family Hx - Immunization History Hx Tetanus Toxoid Vaccination: No Hx Influenza Vaccination: No Hx Pneumococcal Vaccination: No - Home Medications Home Medications: Ambulatory Orders Medication Instructions Recorded Albuterol HFA [Ventolin HFA 90 1 puff IH Q6H PRN 90 Days #1 05/13/18 mcg/actuation (8 g)] inhaler Albuterol HFA [Ventolin HFA 90 2 puff IH [id number] #1 inhaler 06/23/18 mcg/actuation (8 g)] Albuterol Sulfate [Proair Hfa] 0.09 mg IH Q6H PRN #2 inh 06/26/18 Albuterol HFA [Ventolin HFA 90 2 puff IH Q4H PRN #1 inh 07/10/18 mcg/actuation (8 g)] Prednisone [Deltasone] 2 tab PO DAILY #10 tablet 07/10/18 Albuterol HFA [Ventolin HFA 90 1 puff IH Q4 PRN #1 inh 07/19/18 mcg/actuation (8 g)] Albuterol Sulfate [Ventolin Hfa] 1 puff IH Q4 PRN #1 unit 07/20/18 - Allergies Allergies/Adverse Reactions: Allergies Allergy/AdvReac Type Severity Reaction Status Date / Time No Known Allergies Allergy Verified 07/23/18 23:19 Review of Systems ROS Statement: Except As Marked, All Systems Reviewed And Found Negative Respiratory: Positive for: Shortness of Breath, SOB with Exertion. Negative for: Cough, Pleuritic Pain, Wheezing Physical Exam - Reviewed Nursing Documentation Reviewed: Yes Vital Signs Reviewed: Yes - Physical Exam Appears: Positive for: Well, Non-toxic, No Acute Distress. Negative for: In Acute Distress Head Exam: Positive for: ATRAUMATIC, NORMAL INSPECTION Skin: Positive for: Normal Color, Warm, Dry Eye Exam: Positive for: Normal appearance ENT: Positive for: Normal ENT Inspection Neck: Positive for: Normal, Painless ROM, Supple. Negative for: Decreased ROM Cardiovascular/Chest: Positive for: Regular Rate, Rhythm Respiratory: Positive for: Normal Breath Sounds. Negative for: Decreased Breath Sounds, Accessory Muscle Use, Crackles, Rales, Rhonchi, Stridor, Wheezing Pulses-Carotid (L): 2+ Pulses-Carotid (R): 2+ Pulses-Radial (L): 2+ Pulses-Radial (R): 2+ - Laboratory Results Result Diagrams: 07/25/18 18:23 - ECG O2 Sat by Pulse Oximetry: 98 Medical Decision Making Medical Decision Making: I: Asthma Exacerbation R/O with more significant work-up CXR and Bloodwork indicates no pathology Treated with decadron and duoneb will not be rx abuterol as this was rx several times in previous weeks. Disposition - Clinical Impression Clinical Impression: Asthma - Patient ED Disposition Is Patient to be Admitted: No Doctor Will See Patient In The: Office Counseled Patient/Family Regarding: Diagnosis - Disposition Referrals: [facility] [Outside] Disposition: Routine/Home Disposition Time: 20:00 Condition: STABLE Instructions: Asthma in Adults Forms: [employer] (Spanish)
[2018-07-25 19:00] LABS: SQUAMOUS EPITHIAL < 1 /hpf (0-5); URINE BILIRUBIN NEGATIVE (NEGATIVE); URINE BLOOD NEGATIVE (NEGATIVE); URINE CLARITY SLIGHTY-CLOUDY (Clear); URINE COLOR YELLOW (YELLOW); URINE GLUCOSE (UA) NEG (NEGATIVE); URINE LEUKOCYTE ESTERASE NEG Leu/uL (Negative); URINE PROTEIN NEGATIVE (NEGATIVE)
[2018-07-25] MEDS ORDERED: Albuterol-Ipratrop 3 mg / 0.5 (3 ml) UD INH STA (19:29)
[2018-07-25] MEDS ORDERED: Albuterol-Ipratrop 3 mg / 0.5 (3 ml) UD ONE (19:44)
[2018-07-25 20:27] LABS: ALB/GLOB RATIO 1.6 (1.0-2.1); ALBUMIN 4.8 g/dL (3.5-5.0); ALT/SGPT 40 U/L (21-72); AST/SGOT 43 U/L (17-59); BLOOD UREA NITROGEN 12 mg/dl (9-20); CALCIUM 9.7 mg/dL (8.4-10.2); GFR NON-AFRICAN AMERICAN > 60
--- NOTE | 2018-07-26 08:59 | RAD ---
Date of service: 07/25/2018 HISTORY: SOB COMPARISON: Comparison made with prior study dated 07/14/2018 TECHNIQUE: Chest PA and lateral FINDINGS: LUNGS: No active pulmonary disease. PLEURA: No significant pleural effusion identified. No pneumothorax apparent. CARDIOVASCULAR: No aortic atherosclerotic calcification present. Normal cardiac size. No pulmonary vascular congestion. OSSEOUS STRUCTURES: No significant abnormalities. VISUALIZED UPPER ABDOMEN: Normal. OTHER FINDINGS: None. IMPRESSION: No active disease.
--- NOTE | 2018-07-26 09:01 | CARD ---
APPROVED REPORT Date of service: 07/25/2018 EKG Measurement Heart [id number] [place] 132P42 [id number] <Conclusion> Normal sinus rhythm with sinus arrhythmia Incomplete right bundle branch block Borderline ECG
== END 2018-07-25 20:29 | disposition home or self-care (01) ==
LOC: H.ER 17:38
DX: J45.901 Unspecified asthma with (acute) exacerbation (principal)
CPT/HCPCS: 71046; 80053; 81003; 84484; 85025; 87390; 87804; 93005; 94640; 96372; 99283; J1100

== ENCOUNTER 2018-07-27 00:12 | Emergency (ER) | payer OTHER ==
[2018-07-27 00:52] VITALS: BP 127/81; PULSE 57; TEMP 98.8; O2SAT 98
[2018-07-27] MEDS ORDERED: Albuterol HFA 90 mcg/actuation (8 g) INH STA (01:28)
--- NOTE | 2018-07-27 01:34 | ED PDOC ---
HPI: SOB/CHF/COPD Time Seen by Provider: 07/27/18 00:54 Chief Complaint (Nursing): Shortness Of Breath Chief Complaint (Provider): Shortness Of Breath History Per: Patient History/Exam Limitations: no limitations Additional Complaint(s): 27 y/o presents to the ED for his 3rd visit in 4 days states he is here for shortness of breath. Upon entering the ED patient states he wants cranberry juice and doesn't like apple juice. Patient states he has breathing problems; when asked to further explain he doesn't answer and says to look it up in the computer and that he "was here a couple days ago." Patient is requesting D- methadone. He denies cough or chest pain. Patient states he doesn't have asthma or any other medical problems. He refuses to provide any other history. Past Medical History Reviewed: Historical Data, Nursing Documentation, Vital Signs Vital Signs: Last Vital Signs Temp 98.8 F 07/27/18 00:29 Pulse 57 L 07/27/18 00:29 Resp 17 07/27/18 00:29 BP 127/81 07/27/18 00:29 Pulse Ox 98 07/27/18 00:29 - Medical History PMH: Asthma, Sexually Transmitted Disease - Family History Family History: States: Unknown Family Hx - Immunization History Hx Tetanus Toxoid Vaccination: No Hx Influenza Vaccination: No Hx Pneumococcal Vaccination: No - Home Medications Home Medications: Ambulatory Orders Medication Instructions Recorded Albuterol HFA [Ventolin HFA 90 1 puff IH Q6H PRN 90 Days #1 05/13/18 mcg/actuation (8 g)] inhaler Albuterol HFA [Ventolin HFA 90 2 puff IH [id number] #1 inhaler 06/23/18 mcg/actuation (8 g)] Albuterol Sulfate [Proair Hfa] 0.09 mg IH Q6H PRN #2 inh 06/26/18 Albuterol HFA [Ventolin HFA 90 2 puff IH Q4H PRN #1 inh 07/10/18 mcg/actuation (8 g)] Prednisone [Deltasone] 2 tab PO DAILY #10 tablet 07/10/18 Albuterol HFA [Ventolin HFA 90 1 puff IH Q4 PRN #1 inh 07/19/18 mcg/actuation (8 g)] Albuterol Sulfate [Ventolin Hfa] 1 puff IH Q4 PRN #1 unit 07/20/18 - Allergies Allergies/Adverse Reactions: Allergies Allergy/AdvReac Type Severity Reaction Status Date / Time No Known Allergies Allergy Verified 07/23/18 23:19 Review of Systems ROS Statement: Except As Marked, All Systems Reviewed And Found Negative Cardiovascular: Negative for: Chest Pain Respiratory: Positive for: Shortness of Breath. Negative for: Cough Physical Exam - Reviewed Nursing Documentation Reviewed: Yes Vital Signs Reviewed: Yes - Physical Exam Appears: Positive for: Well, Non-toxic, No Acute Distress Head Exam: Positive for: ATRAUMATIC, NORMAL INSPECTION, NORMOCEPHALIC Skin: Positive for: Normal Color, Warm, DRY Eye Exam: Positive for: EOMI, Normal appearance, PERRL ENT: Positive for: Normal ENT Inspection Neck: Positive for: Normal, Painless ROM Cardiovascular/Chest: Positive for: Regular Rate, Rhythm. Negative for: Murmur Respiratory: Positive for: Normal Breath Sounds. Negative for: Respiratory Distress Gastrointestinal/Abdominal: Positive for: Normal Exam, Soft. Negative for: Tenderness Back: Positive for: Normal Inspection Extremity: Positive for: Normal ROM. Negative for: Pedal Edema, Deformity Neurologic/Psych: Positive for: Alert, Oriented. Negative for: Motor/Sensory Deficits - ECG O2 Sat by Pulse Oximetry: 98 (RA) Pulse Ox Interpretation: Normal Medical Decision Making Medical Decision Making: Time: 01:28 MDM: Patient is here for reported shortness of breath but there are no findings on physical exam. Possible malingering given patient is wearing multiple hospital bands and has had 2 previous visits in the past 3 days with no reported findings at any prior visit. Will give Albuterol pump, PO prednisone, and discharge patient. Plan: * EKG * Albuterol * Prednisone 60 mg PO Scribe Attestation: Documented by John Garcia acting as a scribe for Sabina Chin MD. Provider Scribe Attestation: All medical record entries made by the Scribe were at my direction and personally dictated by me. I have reviewed the chart and agree that the record accurately reflects my personal performance of the history, physical exam, medical decision making, and the department course for this patient. I have also personally directed, reviewed, and agree with the discharge instructions and disposition. Disposition - Clinical Impression Clinical Impression: Shortness of breath - Disposition Additional Instructions: Follow up with primary medical doctor for further workup for frequent shortness of breath and asthma. Use albuterol pump every 4 hours when having wheezing. Instructions: Shortness of Breath (Dyspnea) (DC) Forms: [employer] (Honduran) Print Language: VINCENTIAN
[2018-07-27 04:05] VITALS: RESP 18
--- NOTE | 2018-07-27 08:59 | CARD ---
APPROVED REPORT Date of service: 07/27/2018 EKG Measurement Heart [id number] [place] 138P30 [id number] <Conclusion> Sinus bradycardia with sinus arrhythmia Incomplete right bundle branch block Borderline ECG
== END 2018-07-27 01:40 | disposition home or self-care (01) ==
LOC: H.ER 00:12
DX: R06.02 Shortness of breath (principal)

== ENCOUNTER → 2018-07-27 | Emergency (ER) | payer OTHER ==
[2018-07-27 19:30] VITALS: BP 124/70; PULSE 63; RESP 16; TEMP 98.9; O2SAT 97
--- NOTE | 2018-07-28 08:54 | CARD ---
APPROVED REPORT Date of service: 07/27/2018 EKG Measurement Heart [id number] [place] 154P82 [id number] <Conclusion> Normal sinus rhythm with sinus arrhythmia Normal ECG
== END | disposition left against medical advice (07) ==
LOC: H.ER 19:24
DX: Z02.89 Encounter for other administrative examinations (principal); R06.02 Shortness of breath

== ENCOUNTER 2018-07-29 21:36 | Emergency (ER) | payer OTHER ==
[2018-07-29 21:54] VITALS: BP 122/59; PULSE 57; RESP 18; TEMP 98.9; O2SAT 97
--- NOTE | 2018-07-29 22:54 | ED PDOC ---
HPI: Influenza Time Seen by Provider: 07/29/18 22:02 Chief Complaint: Cough, Cold, Congestion Chief Complaint (Provider): trouble breathing Onset/Duration Of Symptoms: Hrs Additional complaint(s):: 27 y/o M with hx of asthma (pt denies adamantly) who has had multiple prior visits to ED over the past 2 weeks for c/o SOB with recent CXR negative for acute disease on 07/23 and normal lung exams. Pt states that he was given Decadron a few days ago and felt a significant difference in his breathing so is here specifically for this reason. States that his SOB came back today and would like "the shot that I received the other day". He is initially refusing to answer further questions stating "I already told you that I'm only here for the shot and don't need to repeat myself". Denies nasal congestion, cough, fever, chills, night sweats. Pt adamantly denies hx of asthma and is unsure of what he was being treated fo over the past couple of days. Past Medical History Reviewed: Historical Data, Nursing Documentation, Vital Signs Vital Signs: Last Vital Signs Temp 98.9 F 07/29/18 21:52 Pulse 57 L 07/29/18 21:52 Resp 18 07/29/18 21:52 BP 122/59 L 07/29/18 21:52 Pulse Ox 97 07/29/18 21:52 - Medical History PMH: Asthma, Sexually Transmitted Disease Denies: Chronic Kidney Disease - Family History Family History: States: Unknown Family Hx - Immunization History Hx Tetanus Toxoid Vaccination: No Hx Influenza Vaccination: No Hx Pneumococcal Vaccination: No - Home Medications Home Medications: Ambulatory Orders Medication Instructions Recorded Albuterol HFA [Ventolin HFA 90 1 puff IH Q6H PRN 90 Days #1 05/13/18 mcg/actuation (8 g)] inhaler Albuterol HFA [Ventolin HFA 90 2 puff IH [id number] #1 inhaler 06/23/18 mcg/actuation (8 g)] Albuterol Sulfate [Proair Hfa] 0.09 mg IH Q6H PRN #2 inh 06/26/18 Albuterol HFA [Ventolin HFA 90 2 puff IH Q4H PRN #1 inh 07/10/18 mcg/actuation (8 g)] Prednisone [Deltasone] 2 tab PO DAILY #10 tablet 07/10/18 Albuterol HFA [Ventolin HFA 90 1 puff IH Q4 PRN #1 inh 07/19/18 mcg/actuation (8 g)] Albuterol Sulfate [Ventolin Hfa] 1 puff IH Q4 PRN #1 unit 07/20/18 Fluticasone Nasal [Flonase] 1 spr NS BID PRN 7 Days spr 07/29/18 - Allergies Allergies/Adverse Reactions: Allergies Allergy/AdvReac Type Severity Reaction Status Date / Time No Known Allergies Allergy Verified 07/23/18 23:19 Physical Exam - Reviewed Nursing Documentation Reviewed: Yes Vital Signs Reviewed: Yes - Physical Exam Appears: Positive for: Well Skin: Positive for: Normal Color Eye Exam: Positive for: Normal appearance ENT: Positive for: TM Is/Are (normal B/L), Nasal Congestion (swollen nasal turbinate R > L). Negative for: Sinus Pain/Drainage, Pharyngeal Erythema, Tonsillar Exudate, Tonsillar Swelling Neck: Positive for: Normal Cardiovascular/Chest: Positive for: Regular Rate, Rhythm Respiratory: Positive for: Normal Breath Sounds Lymphatic: Positive for: Normal Exam Neurologic/Psych: Positive for: Alert, Oriented Medical Decision Making Medical Decision Making: Pt advised that there is currently no indication for Decadron or prednisone as his lungs are clear and his O2 saturation is normal. Pt advised that he would be given a prescription for Flonase as he appears to have nasal turbinate swelling and is likely having some nasal congestion causing some SOB. Pt became agitated once told this stating that he wants his discharge papers, juice and a sandwich and he wants to go. Refuses to answer if he has a PMD. A few minutes later, patient stepped out of room and states "Ok, if you won't given me the shot I'll take Prednisone b/c it's something and I'll take the Flonase". Pt given prescription for Flonase and advised to fill prescription for Albuterol inhaler and use as needed. No further albuterol inhaler prescription given as it has been prescribed at least 5 times over the past 2 months. - ECG O2 Sat by Pulse Oximetry: 97 Disposition - Clinical Impression Clinical Impression: Nasal congestion - Patient ED Disposition Is Patient to be Admitted: No - Disposition Referrals: [facility] [Outside] Kuldeep Rush MD [Staff Provider] - Disposition: Routine/Home Disposition Time: 22:59 Condition: STABLE Additional Instructions: F/u with primary care doctor for further care. YOu are advised to use Albuterol inhaler if he develops further SOB as he appears to have the diagnosis of asthma. You are further advised to use Flovent spray as needed for nasal congestion. Prescriptions: Fluticasone Nasal [Flonase] 1 spr NS BID PRN 7 Days spr PRN Reason: Nasal Congestion Instructions: Cough, Runny Nose, and the Common Cold (DC) Forms: [facility] (Sami) Print Language: MALAY
== END 2018-07-30 00:01 | disposition home or self-care (01) ==
LOC: H.ER 21:36
DX: R09.81 Nasal congestion (principal)

== ENCOUNTER 2018-07-31 19:04 | Emergency (ER) | payer OTHER ==
[2018-07-31 19:30] VITALS: BP 110/67; PULSE 73; RESP 18; TEMP 98.6; O2SAT 99
--- NOTE | 2018-07-31 20:04 | ED PDOC ---
HPI: SOB/CHF/COPD Time Seen by Provider: 07/31/18 19:53 Chief Complaint (Nursing): Shortness Of Breath Chief Complaint (Provider): Wheezing History Per: Patient History/Exam Limitations: no limitations Onset/Duration Of Symptoms: Days (1x) Current Symptoms Are (Timing): Still Present Severity: Moderate Additional Complaint(s): 27 year old male well known to the ED with a past medical history of asthma presents to the ED concerned about asthma. Patient feels as if he has a wheeze that started today and wants a dexamethasone injection. Otherwise, patient has no complaints. PMD: Nasim Booth MD Past Medical History Reviewed: Historical Data, Nursing Documentation, Vital Signs Vital Signs: Last Vital Signs Temp 98.6 F 07/31/18 19:28 Pulse 73 07/31/18 19:28 Resp 18 07/31/18 19:28 BP 110/67 07/31/18 19:28 Pulse Ox 99 07/31/18 19:28 DORY Report Viewed: Yes - Medical History PMH: Asthma, Sexually Transmitted Disease Denies: Chronic Kidney Disease - Family History Family History: States: No Known Family Hx - Social History Current smoker - smoking cessation education provided: No Alcohol: None Drugs: Denies - Immunization History Hx Tetanus Toxoid Vaccination: No Hx Influenza Vaccination: No Hx Pneumococcal Vaccination: No - Home Medications Home Medications: Ambulatory Orders Medication Instructions Recorded RX: Albuterol HFA [Ventolin HFA 90 1 puff IH Q6H PRN 90 Days #1 05/13/18 mcg/actuation (8 g)] inhaler Albuterol HFA [Ventolin HFA 90 2 puff IH [id number] #1 inhaler 06/23/18 mcg/actuation (8 g)] Albuterol Sulfate [Proair Hfa] 0.09 mg IH Q6H PRN #2 inh 06/26/18 RX: Albuterol HFA [Ventolin HFA 90 2 puff IH Q4H PRN #1 inh 07/10/18 mcg/actuation (8 g)] RX: Prednisone [Deltasone] 2 tab PO DAILY #10 tablet 07/10/18 RX: Albuterol HFA [Ventolin HFA 90 1 puff IH Q4 PRN #1 inh 07/19/18 mcg/actuation (8 g)] Albuterol Sulfate [Ventolin Hfa] 1 puff IH Q4 PRN #1 unit 07/20/18 Fluticasone Nasal [Flonase] 1 spr NS BID PRN 7 Days spr 07/29/18 - Allergies Allergies/Adverse Reactions: Allergies Allergy/AdvReac Type Severity Reaction Status Date / Time No Known Allergies Allergy Verified 07/31/18 19:28 Review of Systems ROS Statement: Except As Marked, All Systems Reviewed And Found Negative Respiratory: Positive for: Wheezing Physical Exam - Reviewed Nursing Documentation Reviewed: Yes Vital Signs Reviewed: Yes - Physical Exam Appears: Positive for: Well, Non-toxic, No Acute Distress Head Exam: Positive for: ATRAUMATIC, NORMOCEPHALIC Skin: Positive for: Normal Color, Warm, Dry Eye Exam: Positive for: Normal appearance Cardiovascular/Chest: Positive for: Regular Rate, Rhythm Respiratory: Positive for: Normal Breath Sounds (lungs clear to auscultation). Negative for: Wheezing, Respiratory Distress Neurologic/Psych: Positive for: Alert, Oriented (3x) - ECG O2 Sat by Pulse Oximetry: 99 (RA) Pulse Ox Interpretation: Normal Medical Decision Making Medical Decision Makin:53 Initial impression: 27 year old male concerned about asthma Scribe Attestation: Documented bySabina Leiva, acting as a scribe for Deepthi Monreal PA-C. Provider Scribe Attestation: All medical record entries made by the Scribe were at my direction and personally dictated by me. I have reviewed the chart and agree that the record accurately reflects my personal performance of the history, physical exam, medical decision making, and the department course for this patient. I have also personally directed, reviewed, and agree with the discharge instructions and disposition. Disposition - Clinical Impression Clinical Impression: Dyspnea - Patient ED Disposition Is Patient to be Admitted: No - Disposition Referrals: [facility] [Outside] Virgil Abarca MD [Staff Provider] - Disposition: Routine/Home Disposition Time: 20:15 Condition: FAIR Instructions: Shortness of Breath (Dyspnea) (DC) Forms: [email or web address] (Chilean)
== END 2018-07-31 20:00 | disposition home or self-care (01) ==
LOC: H.ER 19:04
DX: R06.00 Dyspnea, unspecified (principal); J44.9 Chronic obstructive pulmonary disease, unspecified

== ENCOUNTER 2018-08-04 19:20 | Emergency (ER) | payer OTHER ==
[2018-08-04 19:28] VITALS: BP 120/72; RESP 18; TEMP 98.1; O2SAT 100
[2018-08-04 20:34] VITALS: PULSE 72
--- NOTE | 2018-08-04 20:34 | ED PDOC ---
HPI: General Adult Time Seen by Provider: 08/04/18 19:36 Chief Complaint (Nursing): Shortness Of Breath Chief Complaint (Provider): Shortness of Breath History Per: Patient History/Exam Limitations: no limitations Onset/Duration Of Symptoms: Days (07/30/18) Current Symptoms Are (Timing): Better Additional Complaint(s): 27 year old male presents to the ED stating he was advised by the clinic for a chest x-ray and PFT test on 07/30/18. Patient also requests a letter stating he should not be in enclosed places. Currently, patient does not have any symptoms. Otherwise, he denies shortness of breath, HI/SI or hallucinations. Patient is well known to the provider. PMD: [facility] Past Medical History Reviewed: Historical Data, Nursing Documentation, Vital Signs Vital Signs: Last Vital Signs Temp 98.1 F 08/04/18 19:25 Pulse 61 08/04/18 19:25 Resp 18 08/04/18 19:35 BP 120/72 08/04/18 19:25 Pulse Ox 100 08/04/18 19:35 - Medical History PMH: Asthma, Sexually Transmitted Disease Denies: Chronic Kidney Disease - Family History Family History: States: Unknown Family Hx - Immunization History Hx Tetanus Toxoid Vaccination: No Hx Influenza Vaccination: No Hx Pneumococcal Vaccination: No - Home Medications Home Medications: Ambulatory Orders Medication Instructions Recorded Albuterol HFA [Ventolin HFA 90 1 puff IH Q6H PRN 90 Days #1 05/13/18 mcg/actuation (8 g)] inhaler Albuterol HFA [Ventolin HFA 90 2 puff IH [id number] #1 inhaler 06/23/18 mcg/actuation (8 g)] Albuterol Sulfate [Proair Hfa] 0.09 mg IH Q6H PRN #2 inh 06/26/18 Albuterol HFA [Ventolin HFA 90 2 puff IH Q4H PRN #1 inh 07/10/18 mcg/actuation (8 g)] Prednisone [Deltasone] 2 tab PO DAILY #10 tablet 07/10/18 Albuterol HFA [Ventolin HFA 90 1 puff IH Q4 PRN #1 inh 07/19/18 mcg/actuation (8 g)] Albuterol Sulfate [Ventolin Hfa] 1 puff IH Q4 PRN #1 unit 07/20/18 Fluticasone Nasal [Flonase] 1 spr NS BID PRN 7 Days spr 07/29/18 - Allergies Allergies/Adverse Reactions: Allergies Allergy/AdvReac Type Severity Reaction Status Date / Time No Known Allergies Allergy Verified 08/04/18 19:23 Review of Systems ROS Statement: Except As Marked, All Systems Reviewed And Found Negative Respiratory: Negative for: Shortness of Breath Psych: Negative for: Suicidal ideation, Other (homicidal ideation ) Physical Exam - Reviewed Nursing Documentation Reviewed: Yes Vital Signs Reviewed: Yes - Physical Exam Appears: Positive for: No Acute Distress ENT: Positive for: Normal ENT Inspection Cardiovascular/Chest: Positive for: Regular Rate, Rhythm. Negative for: Murmur Respiratory: Positive for: Normal Breath Sounds. Negative for: Respiratory Distress Neurologic/Psych: Positive for: Alert, Oriented (x3), Mood/Affect (calm; cooperative ), Gait (steady) - ECG ECG: Positive for: Interpreted By Me, Viewed By Me ECG Rhythm: Positive for: Sinus Rhythm. Negative for: ST/T Changes Rate: 72 O2 Sat by Pulse Oximetry: 100 (RA) Pulse Ox Interpretation: Normal Medical Decision Making Medical Decision Making: Time: 1927 Initial Plan: EKG: normal sinus rhythm, 72 bpm, no ST or T wave changes Upon provider reevaluation patient is feeling better, is medically stable, and requires no further treatment in the ED at this time. Patient will be discharged home. Counseling was provided and all questions were answered regarding diagnosis and need for follow up with [facility] [place]. There is agreement to discharge plan. Return if symptoms persist or worsen. --------- Scribe Attestation: Documented by Arturo Waddell, acting as a scribe for Jayant Balbuena PA-C Provider Scribe Attestation: All medical record entries made by the Scribe were at my direction and personally dictated by me. I have reviewed the chart and agree that the record accurately reflects my personal performance of the history, physical exam, medical decision making, and the department course for this patient. I have also personally directed, reviewed, and agree with the discharge instructions and disposition. Disposition - Clinical Impression Clinical Impression: Dyspnea - Patient ED Disposition Is Patient to be Admitted: No - Disposition Referrals: [facility] [Outside] Disposition Time: 20:00 Condition: STABLE Additional Instructions: DEBBIE PITTMAN, thank you for letting us take care of you today. Your provider was Anna Richard MD and you were treated for SOB. The emergency medical care you received today was directed at your acute symptoms. If you were prescribed any medication, please fill it and take as directed. It may take several days for your symptoms to resolve. Return to the Emergency Department if your symptoms worsen, do not improve, or if you have any other problems. Please contact your doctor or call one of the physicians/clinics you have been referred to that are listed on the Patient Visit Information form that is included in your discharge packet. Bring any paperwork you were given at discharge with you along with any medications you are taking to your follow up visit. Our treatment cannot replace ongoing medical care by a primary care provider outside of the emergency department. Thank you for allowing the [facility] team to be part of your care today. If you had an X-Ray or CT scan: A Radiologist will review the ED reading if any change in treatment is needed we will contact you. If you had a blood, urine, or wound culture: It will take several days for the results, if any change in treatment is needed we will contact you. If you had an STI test: It will take 48 hours for the results. Please call after 1 week if you have not heard back. Instructions: Shortness of Breath (Dyspnea) (DC) Forms: [employer] (Austrian) Print Language: PUERTO RICAN
--- NOTE | 2018-08-05 11:38 | CARD ---
APPROVED REPORT Date of service: 08/04/2018 EKG Measurement Heart [id number] <Conclusion> Normal sinus rhythm with sinus arrhythmia Normal ECG
== END 2018-08-04 20:10 | disposition home or self-care (01) ==
LOC: H.ER 19:20
DX: R06.00 Dyspnea, unspecified (principal)